=== PATIENT | male | born 1955 | race Caucasian/White ===

== ENCOUNTER 2020-03-21 10:59 | Outpatient (RCR) | payer OTHER, SELFPAY | END 2020-03-21 23:59 | disposition home or self-care (01) | LOC: ANHAUDIO 10:59 | PROVIDERS: PCP Otolaryngology; Visit Provider Otolaryngology | DX: Z46.1 Encounter for fitting and adjustment of hearing aid (principal) | CPT/HCPCS: 99199 ==